=== PATIENT | male | born 1930 | race American Indian/Alaskan Native ===

== ENCOUNTER 2018-12-08 22:45 | Inpatient (IN) | payer MEDICARE ==
[2018-12-08] MEDS ORDERED: CARDIZEM IV ONE (23:16)
[2018-12-08] MEDS ORDERED: NACL 0.9% 1000 ML 1,000 ML IV ONE (23:16)
--- NOTE | 2018-12-08 23:19 | Emergency Department Report ---
ED General Adult HPI - General Chief complaint: GI Bleed Stated complaint: GI BLEED Time Seen by Provider: 12/08/18 23:14 Source: patient, EMS Mode of arrival: Stretcher Limitations: Other - History of Present Illness Initial comments: 88-year-old male who has a prior history of prostate cancer and mild dementia presents with one-day onset according to the family of blood in the stool. Family states that she noted blood in the patient's diaper when he changed and then he had a bowel movement and noted blood in the toilet. Patient denies any hematemesis. Patient denies taking any ibuprofen therapy and states he is not on any anticoagulation therapy. Patient denies any abdominal pain, chest pain, or shortness of breath. Patient states that he has had no prior episodes of blood in the stool. Patient denies any trauma to his rectal region. Patient denies any melena and states that he has had no colonoscopies in the past. Severity scale (0 -10): 0 - Related Data Allergies Allergy/AdvReac Type Severity Reaction Status Date / Time No Known Allergies Allergy Unverified 12/08/18 22:58 ED Review of Systems ROS: Stated complaint: GI BLEED Other details as noted in HPI Constitutional: weakness. denies: chills, fever Eyes: denies: eye pain, eye discharge, vision change ENT: denies: ear pain, throat pain Respiratory: denies: cough, shortness of breath, wheezing Cardiovascular: denies: chest pain, palpitations Endocrine: no symptoms reported Gastrointestinal: hematochezia. denies: abdominal pain, nausea, diarrhea Genitourinary: denies: urgency, dysuria Musculoskeletal: denies: back pain, joint swelling, arthralgia Skin: denies: rash, lesions Neurological: denies: headache, weakness, paresthesias Psychiatric: denies: anxiety, depression Hematological/Lymphatic: denies: easy bleeding, easy bruising ED Past Medical Hx - Past Medical History Hx Hypertension: Yes Hx of Cancer: Yes (prostate ca) Hx Dementia: Yes Additional medical history: dementia - Surgical History Past Surgical History?: No - Social History Smoking Status: Never Smoker Substance Use Type: None ED Physical Exam - General Limitations: Other General appearance: alert, in no apparent distress - Head Head exam: Present: atraumatic, normocephalic - Eye Eye exam: Present: normal appearance Pupils: Present: other (conjunctival pallor noted) - ENT ENT exam: Present: mucous membranes dry - Neck Neck exam: Present: normal inspection - Respiratory Respiratory exam: Present: normal lung sounds bilaterally. Absent: respiratory distress - Cardiovascular Cardiovascular Exam: Present: tachycardia, irregular rhythm. Absent: systolic murmur, diastolic murmur, rubs, gallop - GI/Abdominal GI/Abdominal exam: Present: soft, normal bowel sounds. Absent: distended, tenderness - Rectal Rectal exam: Present: heme (+) stool, bloody stool. Absent: tenderness - Extremities Exam Extremities exam: Present: normal inspection - Back Exam Back exam: Present: normal inspection - Neurological Exam Neurological exam: Present: alert, oriented X3, CN II-XII intact - Psychiatric Psychiatric exam: Present: normal affect, normal mood - Skin Skin exam: Present: warm, dry, intact, normal color. Absent: rash ED Course Vital Signs 12/08/18 12/08/18 12/08/18 22:58 23:19 23:30 Temperature 97.4 F L Pulse Rate 136 H 130 H Respiratory 19 16 Rate Blood Pressure 131/70 114/84 Blood Pressure [Left] O2 Sat by Pulse 100 100 Oximetry 12/08/18 23:57 Temperature Pulse Rate 109 H Respiratory 24 Rate Blood Pressure Blood Pressure 101/77 [Left] O2 Sat by Pulse 100 Oximetry ED Medical Decision Making - Lab Data Result diagrams: 12/08/18 23:18 12/08/18 23:27 - Medical Decision Making Patient given IV fluids as well as Protonix daily while here in emergency department. Patient also received diltiazem as he was noted be in A. fib with RVR. Patient typed and screened as well. GI consulted. - Differential Diagnosis Gi bleed; Dehydration; Anemia; Electrolyte abnormality Critical Care Time: Yes Critical care time in (mins) excluding proc time.: 40 Critical care attestation.: If time is entered above; I have spent that time in minutes in the direct care of this critically ill patient, excluding procedure time. Critical Care time includes time spent with direct bedside care, physician consultation, and physician consultation. ED Disposition Clinical Impression: GI bleed, Atrial fibrillation with RVR, Acute renal failure, Elevation of cardiac enzymes Disposition: - TO HOME OR SELFCARE Is pt being admited?: Yes Does the pt Need Aspirin: No (Patient has) Condition: Fair Referrals: LADY JARVIS MD [Primary Care Provider] - 3-5 Days Forms: Accompanied Note Time of Disposition: 00:31 Print Language: CZECH
[2018-12-08 23:46] LABS: Basophils # (Auto) 0.1 K/mm3 (0.0-0.1); Basophils % (Auto) 1.1 % (0.0-1.8); Eosinophils # (Auto) 0.1 K/mm3 (0.0-0.4); Eosinophils % (Auto) 1.2 % (0.0-4.3); Hematocrit 39.3 % (35.5-45.6); Hemoglobin 12.6 gm/dl (11.8-15.2); Lymphocytes # (Auto) 1.4 K/mm3 (1.2-5.4); Lymphocytes % (Auto) 26.7 % (13.4-35.0); Mean Corpuscular HGB Conc 32 % (32-34); Mean Corpuscular Volume 90 fl (84-94); Monocytes # (Auto) 0.4 K/mm3 (0.0-0.8); Monocytes % (Auto) 6.9 % (0.0-7.3); Platelet Count 165 K/mm3 (140-440); Red Blood Count 4.36 M/mm3 (3.65-5.03); Red Cell Distribution Width 17.2 % (13.2-15.2)
[2018-12-09] LABS: INR 1.14 (0.87-1.13)
[2018-12-09 00:01] LABS: Partial Thromboplastin Time 34.1 Sec. (24.2-36.6)
[2018-12-09 00:06] LABS: Calcium 9.1 mg/dL (8.4-10.2)
[2018-12-09 00:20] LABS: Chol/HDL Ratio 4.5 %
--- NOTE | 2018-12-09 01:11 | XRay Report ---
PROCEDURE: XR CHEST 1V AP TECHNIQUE: Chest radiograph single view. HISTORY: Gi bleed COMPARISONS: None . FINDINGS: Heart: Normal. Mediastinum/Vessels: Normal. Lungs/Pleural space: Normal. Bony thorax: No acute osseous abnormality. Life support devices: None. IMPRESSION: No acute cardiopulmonary abnormality. This document is electronically signed by Heron Hancock MD., December 09 2018 01:09:47 AM ET
[2018-12-09] MEDS ORDERED: TYLENOL PO PRN (01:38)
[2018-12-09] MEDS ORDERED: ZOFRAN IV PRN (01:38)
[2018-12-09] MEDS ORDERED: SODIUM CHLORIDE FLUSH SYRINGE 10 ML IV PRN (01:38)
--- NOTE | 2018-12-09 01:41 | History and Physical Report ---
History of Present Illness Date of examination: 12/09/18 History of present illness: 88-year-old male with a history of hypertension, dementia, prostate cancer was brought to the emergency room daughter because he had blood per rectum today. The patient has been sleeping a lot, he is from out of town. In the emergency room he was found to be in A. fib with RVR. Her review of systems unobtainable. Patient is not taking any medicine PAST MEDICAL HISTORY:hypertension, dementia, prostate cancer PAST SURGICAL HISTORY: Prostatectomy SOCIAL HISTORY: Denies alcohol, drugs, tobacco FAMILY HISTORY: Hypertension Medications and Allergies Allergies Allergy/AdvReac Type Severity Reaction Status Date / Time No Known Allergies Allergy Unverified 12/08/18 22:58 Home Medications Medication Instructions Recorded Confirmed Last Taken Type No Known Home Medications [No 12/09/18 12/09/18 Unknown History Reported Home Medications] Active Meds: Active Medications Acetaminophen (Tylenol) 650 mg PO Q4H PRN PRN Reason: Pain MILD(1-3)/Fever >100.5/LUCIO Diltiazem HCl 100 mg/ Dextrose 100 mls @ 2.5 mls/hr IV DIRECT KORY; Protocol Sodium Chloride (Nacl 0.9% 1000 Ml) 1,000 mls @ 75 mls/hr IV DIRECT KORY Ondansetron HCl (Zofran) 4 mg IV Q8H PRN PRN Reason: Nausea And Vomiting Sodium Chloride (Sodium Chloride Flush Syringe 10 Ml) 10 ml IV BID KORY Sodium Chloride (Sodium Chloride Flush Syringe 10 Ml) 10 ml IV PRN PRN PRN Reason: LINE FLUSH Exam - Physical Exam Narrative exam: General Apperance: The patient lying in bed, breathing comfortable HEENT: Normocephalic, atraumatic. Pupils equally round and reactive to light, EOMI, no sclericterus or JVD or thyromegaly or nodule. , no carotid bruit, mucous membranes moist, no exudate or erythema Heart: S1-S2, regular is rhythm Lungs: Clear to auscultation bilaterally, breathing comfortable Abdomen: Positive bowel sounds, soft, nontender, nondistended, no organomegaly Extremities: No edema cyanosis clubbing Skin: no rash, nodule, warm and dry Neuro: cranial nerves 2-12 intact, speech is fluent, motor/sensory intact - Constitutional Vitals: Temp Pulse Resp BP Pulse Ox 97.4 F L 109 H 24 101/77 100 12/08/18 22:58 12/08/18 23:57 12/08/18 23:57 12/08/18 23:57 12/08/18 23:57 Results - Labs CBC & Chem 7: 12/09/18 04:14 12/09/18 04:14 Labs: Abnormal lab results 12/08/18 12/08/18 12/08/18 Range/Units 23:18 23:27 23:27 RDW 17.2 H (13.2-15.2) % PT 15.3 H (12.2-14.9) Sec. INR 1.14 H (0.87-1.13) Sodium 135 L (137-145) mmol/L BUN 28 H (9-20) mg/dL Creatinine 1.7 H (0.8-1.5) mg/dL Troponin T 0.043 H (0.00-0.029) ng/mL Cholesterol 207 H (50-199) mg/dL LDL Cholesterol Direct 144 H (50-130) mg/dL - Imaging and Cardiology EKG: image reviewed Chest x-ray: report reviewed Assessment and Plan Assessment A. fib with RVR, new onset Lower GI bleed Dementia History of prostate cancer Plan Admit to medicine Cardizem drip, check cardiac enzymes, echo Consult cardiology, GI, monitor hemoglobin Consult critical care, start fluid DVT prophylaxis
[2018-12-09] MEDS ORDERED: CARDIZEM 100 MG in D5W 80 ML IV SCH (02:00)
[2018-12-09 02:22] LABS: Creatine Kinase MB 1.6 ng/mL (0.0-4.0)
[2018-12-09] MEDS ORDERED: NACL 0.9% 1000 ML 1,000 ML ONE (04:38)
[2018-12-09 04:45] LABS: Basophils % (Auto) 1.2 % (0.0-1.8); Eosinophils % (Auto) 0.5 % (0.0-4.3); Hematocrit 35.8 % (35.5-45.6); Hemoglobin 11.8 gm/dl (11.8-15.2); Lymphocytes # (Auto) 1.3 K/mm3 (1.2-5.4); Lymphocytes % (Auto) 22.7 % (13.4-35.0); Mean Corpuscular HGB Conc 33 % (32-34); Mean Corpuscular Volume 90 fl (84-94); Monocytes % (Auto) 6.8 % (0.0-7.3); Platelet Count 158 K/mm3 (140-440); Red Cell Distribution Width 16.8 % (13.2-15.2)
[2018-12-09 04:46] LABS: Basophils # (Auto) 0.1 K/mm3 (0.0-0.1); Monocytes # (Auto) 0.4 K/mm3 (0.0-0.8)
[2018-12-09] MEDS: NACL 0.9% 1000 ML 1,000 ML IV SCH ×2 (04:57→17:09)
[2018-12-09 05:10] LABS: Calcium 8.5 mg/dL (8.4-10.2)
--- NOTE | 2018-12-09 09:24 | Event Note ---
Date: 12/09/18 Patient with afib with RVR with GI bleed. I have seen and examined him. Cardiology to evaluate. H/H is stable for now. Repeat H/H at 16:00.
[2018-12-09 10:13] LABS: Creatine Kinase MB 1.6 ng/mL (0.0-4.0)
--- NOTE | 2018-12-09 10:34 | Gastroenterology Consultation ---
History of Present Illness - Reason for Consult Consult date: 12/09/18 GI bleed Requesting physician: JAME VELA - History of Present Illness Patient is a 88 y/o male with PMH of HTN, prostate cancer and mild dementia who was admitted with new onset Afib with RVR (currently on cardizem drip in ICU) and rectal bleeding to which GI has been consulted. Cardiology consult pending. This morning patient was resting in bed w/o acute distress. Patient noted to be oriented to self only and unable to provide history. History obtained via chart review and by speaking to patient's son Jonathan via phone. No active signs of bleeding overnight or this am per nursing. No evidence of abd pain, N/V, hematemesis, or melena. Not taking any blood thinning medications at home. No hx of PUD or GI bleeding. No prior colonoscopy. No known family hx of colon cancer. Upon exam, rectal revealed maroon blood with brown stool smeared in diaper. Past History Past Medical History: other (as per HPI) Past Surgical History: Other (Prostatectomy) Social history: denies: smoking, alcohol abuse Family history: hypertension Medications and Allergies Allergies Allergy/AdvReac Type Severity Reaction Status Date / Time No Known Allergies Allergy Unverified 12/08/18 22:58 Home Medications Medication Instructions Recorded Confirmed Last Taken Type No Known Home Medications [No 12/09/18 12/09/18 Unknown History Reported Home Medications] Active Meds: Active Medications Acetaminophen (Tylenol) 650 mg PO Q4H PRN PRN Reason: Pain MILD(1-3)/Fever >100.5/LUCIO Diltiazem HCl 100 mg/ Dextrose 100 mls @ 2.5 mls/hr IV DIRECT KORY; Protocol Last Infusion: 12/09/18 07:40 Dose: 0 mg/hr, 0 mls/hr Documented by: Sodium Chloride (Nacl 0.9% 1000 Ml) 1,000 mls @ 75 mls/hr IV DIRECT KORY Last Admin: 12/09/18 04:57 Dose: 75 mls/hr Documented by: Ondansetron HCl (Zofran) 4 mg IV Q8H PRN PRN Reason: Nausea And Vomiting Sodium Chloride (Sodium Chloride Flush Syringe 10 Ml) 10 ml IV BID KORY Sodium Chloride (Sodium Chloride Flush Syringe 10 Ml) 10 ml IV PRN PRN PRN Reason: LINE FLUSH medications reviewed/updated as required Review of Systems - Review of Systems Gastrointestinal: hematochezia Exam - Constitutional Vital Signs: Temp Pulse Resp BP Pulse Ox 97.6 F 88 22 124/83 98 12/09/18 07:50 12/09/18 10:00 12/09/18 10:00 12/09/18 10:00 12/09/18 09:10 General appearance: no acute distress, other - Respiratory Respiratory: bilateral: CTA - Cardiovascular Rhythm: other (irregular) - Gastrointestinal General gastrointestinal: Present: soft, non-tender, non-distended, normal bowel sounds Rectal Exam: other (maroon blood with brown stool smeared in diaper (cable way operator present during exam-Mitzi VIERA)) - Neurologic Neurological: oriented to person, other (cooperative) - Labs CBC & Chem 7: 12/09/18 04:14 12/09/18 04:14 Lab Results: Laboratory Results - last 24 hr 12/08/18 12/08/18 12/08/18 23:18 23:25 23:27 WBC 5.2 RBC 4.36 Hgb 12.6 Hct 39.3 MCV 90 MCH 29 MCHC 32 RDW 17.2 H Plt Count 165 Lymph % (Auto) 26.7 Gem % (Auto) 6.9 Eos % (Auto) 1.2 Baso % (Auto) 1.1 Lymph # 1.4 Gem # 0.4 Eos # 0.1 Baso # 0.1 Seg Neutrophils % 64.1 Seg Neutrophils # 3.3 PT 15.3 H INR 1.14 H APTT 34.1 Sodium Potassium Chloride Carbon Dioxide Anion Gap BUN Creatinine Estimated GFR BUN/Creatinine Ratio Glucose Calcium Magnesium Total Creatine Kinase CK-MB (CK-2) CK-MB (CK-2) Rel Index Troponin T Triglycerides Cholesterol LDL Cholesterol Direct HDL Cholesterol Cholesterol/HDL Ratio Blood Type O POSITIVE Antibody Screen Negative 12/08/18 12/09/18 12/09/18 23:27 01:45 04:14 WBC 5.8 RBC 4.00 Hgb 11.8 Hct 35.8 MCV 90 MCH 29 MCHC 33 RDW 16.8 H Plt Count 158 Lymph % (Auto) 22.7 Gem % (Auto) 6.8 Eos % (Auto) 0.5 Baso % (Auto) 1.2 Lymph # 1.3 Gem # 0.4 Eos # 0.0 Baso # 0.1 Seg Neutrophils % 68.8 Seg Neutrophils # 4.0 PT INR APTT Sodium 135 L Potassium 4.6 Chloride 100.0 Carbon Dioxide 22 Anion Gap 18 BUN 28 H Creatinine 1.7 H Estimated GFR 46 BUN/Creatinine Ratio 16 Glucose 99 Calcium 9.1 Magnesium 1.70 Total Creatine Kinase 72 69 CK-MB (CK-2) 1.6 CK-MB (CK-2) Rel Index 2.3 Troponin T 0.043 H 0.047 H Triglycerides 139 Cholesterol 207 H LDL Cholesterol Direct 144 H HDL Cholesterol 46 Cholesterol/HDL Ratio 4.50 Blood Type Antibody Screen 12/09/18 12/09/18 04:14 08:27 WBC RBC Hgb Hct MCV MCH MCHC RDW Plt Count Lymph % (Auto) Gem % (Auto) Eos % (Auto) Baso % (Auto) Lymph # Gem # Eos # Baso # Seg Neutrophils % Seg Neutrophils # PT INR APTT Sodium 137 Potassium 4.7 Chloride 103.5 Carbon Dioxide 21 L Anion Gap 17 BUN 26 H Creatinine 1.4 Estimated GFR 58 BUN/Creatinine Ratio 19 Glucose 94 Calcium 8.5 Magnesium Total Creatine Kinase 58 CK-MB (CK-2) 1.6 CK-MB (CK-2) Rel Index 2.7 Troponin T 0.044 H Triglycerides Cholesterol LDL Cholesterol Direct HDL Cholesterol Cholesterol/HDL Ratio Blood Type Antibody Screen Assessment and Plan 1.GI bleed/rectal bleeding -INR 1.14 -H/H WNL (11.8/35.8) -continue to monitor H/H and transfuse as needed -no active signs of bleeding overnight or this am per nursing; upon exam, rectal revealed maroon blood with brown stool smeared in diaper -currently HD stable -etiology unclear-likely a lower source (diverticular? vs other) -discussed the option of a endoscopic evaluation with a colonoscopy with patient's son Jonathan Diaz ([phone] or [phone]) including risks vs benefits. Understanding voiced and he is agreeable with proceeding with procedure -will schedule for colonoscopy in am pending cardiology clearance -okay for clear liquids today, then NPO after MN -continue PPI and supportive care -if overt bleeding develops, recommend stat CTA vs bleeding scan -will follow 2.Afib with RVR -currently on cardizem drip -cardiology consult pending 3.dementia 4.H/o prostate cancer
[2018-12-09] MEDS ORDERED: HALDOL ONE (11:27)
--- NOTE | 2018-12-09 11:37 | Consultation ---
History of Present Illness - Reason for Consult Consult date: 12/09/18 Afib with RVR and Questionable dark stools Requesting physician: LORRAINE COLBERT - History of Present Illness 88 y/o male with prior history of prostate CA and dementia, admitted with afib with RVR and questionable GI bleed. Patient is oriented only to his name. He does not know the year, the month nor the date. Does not know who the president is. No family currently at bedside. Slight agitated but redirectable. HR is in the mid 100's to as high as 150 during my interview and in afib. Remainder is negative. Past History Past Medical History: other (as per HPI) Past Surgical History: Other (Prostatectomy) Social history: denies: smoking, alcohol abuse Family history: hypertension Medications and Allergies Allergies Allergy/AdvReac Type Severity Reaction Status Date / Time No Known Allergies Allergy Unverified 12/08/18 22:58 Home Medications Medication Instructions Recorded Confirmed Last Taken Type No Known Home Medications [No 12/09/18 12/09/18 Unknown History Reported Home Medications] Active Meds: Active Medications Acetaminophen (Tylenol) 650 mg PO Q4H PRN PRN Reason: Pain MILD(1-3)/Fever >100.5/LUCIO Haloperidol Lactate (Haldol) 5 mg IV Q6H PRN PRN Reason: Agitation Diltiazem HCl 100 mg/ Dextrose 100 mls @ 2.5 mls/hr IV DIRECT KORY; Protocol Last Infusion: 12/09/18 07:40 Dose: 0 mg/hr, 0 mls/hr Documented by: Sodium Chloride (Nacl 0.9% 1000 Ml) 1,000 mls @ 75 mls/hr IV DIRECT KORY Last Admin: 12/09/18 04:57 Dose: 75 mls/hr Documented by: Ondansetron HCl (Zofran) 4 mg IV Q8H PRN PRN Reason: Nausea And Vomiting Polyethylene Glycol/Electrolytes (Golytely) 4,000 ml PO ONCE ONE Stop: 12/09/18 17:01 Sodium Chloride (Sodium Chloride Flush Syringe 10 Ml) 10 ml IV BID KORY Sodium Chloride (Sodium Chloride Flush Syringe 10 Ml) 10 ml IV PRN PRN PRN Reason: LINE FLUSH Review of Systems All systems: negative Exam - Constitutional Vitals: Temp Pulse Resp BP Pulse Ox 97.6 F 88 22 124/83 98 12/09/18 07:50 12/09/18 10:00 12/09/18 10:00 12/09/18 10:00 12/09/18 09:10 General appearance: Present: no acute distress, cachectic, disheveled - EENT Eyes: Present: PERRL, EOM intact ENT: hearing intact, poor dentition - Neck Neck: Present: supple, normal ROM - Respiratory Respiratory effort: normal Respiratory: bilateral: CTA - Cardiovascular Rhythm: irregularly irregular (and tachycardic) - Extremities Extremities: no ischemia - Abdominal General gastrointestinal: Present: soft, non-tender Male genitourinary: Present: deferred - Rectal Rectal Exam: deferred Results - Labs CBC & Chem 7: 12/09/18 04:14 12/09/18 04:14 Labs: Abnormal lab results 12/08/18 12/08/18 12/08/18 Range/Units 23:18 23:27 23:27 RDW 17.2 H (13.2-15.2) % PT 15.3 H (12.2-14.9) Sec. INR 1.14 H (0.87-1.13) Sodium 135 L (137-145) mmol/L Carbon Dioxide (22-30) mmol/L BUN 28 H (9-20) mg/dL Creatinine 1.7 H (0.8-1.5) mg/dL Troponin T 0.043 H (0.00-0.029) ng/mL Cholesterol 207 H (50-199) mg/dL LDL Cholesterol Direct 144 H (50-130) mg/dL 12/09/18 12/09/18 12/09/18 Range/Units 01:45 04:14 04:14 RDW 16.8 H (13.2-15.2) % PT (12.2-14.9) Sec. INR (0.87-1.13) Sodium (137-145) mmol/L Carbon Dioxide 21 L (22-30) mmol/L BUN 26 H (9-20) mg/dL Creatinine (0.8-1.5) mg/dL Troponin T 0.047 H (0.00-0.029) ng/mL Cholesterol (50-199) mg/dL LDL Cholesterol Direct (50-130) mg/dL 12/09/18 Range/Units 08:27 RDW (13.2-15.2) % PT (12.2-14.9) Sec. INR (0.87-1.13) Sodium (137-145) mmol/L Carbon Dioxide (22-30) mmol/L BUN (9-20) mg/dL Creatinine (0.8-1.5) mg/dL Troponin T 0.044 H (0.00-0.029) ng/mL Cholesterol (50-199) mg/dL LDL Cholesterol Direct (50-130) mg/dL - Imaging and Cardiology Chest x-ray: image reviewed (normal) Assessment and Plan 88 y/o male with afib with RVR and questionable GI bleed. 1. Restart Dilt drip 2. Haldol 5 q6 PRN for agitation 3. Serial H/H's can likely do q12 4. Follow up cards recs 5. electrolytes are stable CCT 31
--- NOTE | 2018-12-09 13:12 | XRay Report ---
AP ABDOMEN: HISTORY: Dobbhoff tube placement. The distal tip of the Dobbhoff tube terminates in the fundus of the stomach. The abdominal gas pattern is unremarkable. No masses or organomegaly is identified and there is no gross evidence of free air or fluid. No significant soft tissue calcifications are noted. IMPRESSION: Unremarkable abdomen.
--- NOTE | 2018-12-09 13:22 | Consultation ---
History of Present Illness Consult date: 12/09/18 Consult reason: atrial fibrillation History of present illness: Patient is an 88 year old male with a history of prostate cancer, Dementia who was brought to this hospital with reports of melena found to be in rapid atrial fibrillation thus this cardiac consultation. Patient is currently on intravenous Diltiazem. Initial labs shows acute renal failure. H&H remains stable. TSH is normal. There were no reports of chest pain, shortness of breath or palpitations. Medications and Allergies Allergies Allergy/AdvReac Type Severity Reaction Status Date / Time No Known Allergies Allergy Unverified 12/08/18 22:58 Home Medications Medication Instructions Recorded Confirmed Last Taken Type No Known Home Medications [No 12/09/18 12/09/18 Unknown History Reported Home Medications] Active Meds: Active Medications Acetaminophen (Tylenol) 650 mg PO Q4H PRN PRN Reason: Pain MILD(1-3)/Fever >100.5/LUCIO Haloperidol Lactate (Haldol) 5 mg IV Q6H PRN PRN Reason: Agitation Diltiazem HCl 100 mg/ Dextrose 100 mls @ 2.5 mls/hr IV DIRECT KORY; Protocol Last Infusion: 12/09/18 07:40 Dose: 0 mg/hr, 0 mls/hr Documented by: Sodium Chloride (Nacl 0.9% 1000 Ml) 1,000 mls @ 75 mls/hr IV DIRECT KORY Last Admin: 12/09/18 04:57 Dose: 75 mls/hr Documented by: Ondansetron HCl (Zofran) 4 mg IV Q8H PRN PRN Reason: Nausea And Vomiting Polyethylene Glycol/Electrolytes (Golytely) 4,000 ml PO ONCE ONE Stop: 12/09/18 17:01 Sodium Chloride (Sodium Chloride Flush Syringe 10 Ml) 10 ml IV BID KORY Sodium Chloride (Sodium Chloride Flush Syringe 10 Ml) 10 ml IV PRN PRN PRN Reason: LINE FLUSH Physical Examination Vital Signs Temp Pulse Resp BP Pulse Ox 97.4 F L 136 H 19 131/70 100 12/08/18 22:58 12/08/18 22:58 12/08/18 22:58 12/08/18 22:58 12/08/18 22:58 General appearance: no acute distress HEENT: Positive: PERRL Cardiac: Positive: irregularly irregular Results 12/09/18 04:14 12/09/18 04:14 Cardiac Enzymes 12/09/18 12/09/18 Range/Units 01:45 08:27 CK-MB (CK-2) 1.6 1.6 (0.0-4.0) ng/mL Coagulation 12/08/18 Range/Units 23:27 PT 15.3 H (12.2-14.9) Sec. INR 1.14 H (0.87-1.13) APTT 34.1 (24.2-36.6) Sec. Lipids 12/08/18 Range/Units 23:27 Triglycerides 139 (2-149) mg/dL Cholesterol 207 H (50-199) mg/dL HDL Cholesterol 46 (40-59) mg/dL Cholesterol/HDL Ratio 4.50 % CBC 12/08/18 12/09/18 Range/Units 23:18 04:14 WBC 5.2 5.8 (4.5-11.0) K/mm3 RBC 4.36 4.00 (3.65-5.03) M/mm3 Hgb 12.6 11.8 (11.8-15.2) gm/dl Hct 39.3 35.8 (35.5-45.6) % Plt Count 165 158 (140-440) K/mm3 Lymph # 1.4 1.3 (1.2-5.4) K/mm3 [place] # 0.4 0.4 (0.0-0.8) K/mm3 Eos # 0.1 0.0 (0.0-0.4) K/mm3 Baso # 0.1 0.1 (0.0-0.1) K/mm3 Comprehensive Metabolic Panel 12/08/18 12/09/18 Range/Units 23:27 04:14 Sodium 135 L 137 (137-145) mmol/L Potassium 4.6 4.7 (3.6-5.0) mmol/L Chloride 100.0 103.5 (98-107) mmol/L Carbon Dioxide 22 21 L (22-30) mmol/L BUN 28 H 26 H (9-20) mg/dL Creatinine 1.7 H 1.4 (0.8-1.5) mg/dL Glucose 99 94 (75-100) mg/dL Calcium 9.1 8.5 (8.4-10.2) mg/dL Assessment and Plan GI bleed Atrial fibrillation on IV Diltiazem Acute renal failure Hx of Prostate Ca Dementia
[2018-12-09] MEDS: LOPRESSOR IV PRN ×2 (14:59→22:11)
[2018-12-09 16:08] LABS: Hematocrit 37.6 % (35.5-45.6); Hemoglobin 12.1 gm/dl (11.8-15.2)
[2018-12-09] MEDS ORDERED: GOLYTELY PO ONE (17:00)
[2018-12-09] MEDS: LANOXIN IV SCH (17:00)
[2018-12-09] MEDS: CARDIZEM PO SCH (17:01)
[2018-12-09] MEDS: HALDOL IV PRN ×2 (17:01→22:18)
--- NOTE | 2018-12-09 17:21 | XRay Report ---
PROCEDURE: XR ABDOMEN 1V AP TECHNIQUE: Supine views of the abdomen HISTORY: Dobbhoff replacement COMPARISONS: None . FINDINGS: Dobbhoff tube terminates in the proximal stomach. The bowel gas pattern is nonspecific. No free air is identified. Soft tissues have no evidence for ma ss shadows or calcifications. The bony structures are intact. IMPRESSION: Dobbhoff tube terminates in the proximal stomach This document is electronically signed by Terri Chamorro MD., December 09 2018 05:19:55 PM ET
--- NOTE | 2018-12-09 19:36 | XRay Report ---
PROCEDURE: XR ABDOMEN 1V AP TECHNIQUE: Single AP view of the abdomen HISTORY: dobhoff placement/new reinsertion COMPARISONS: 12/09/2018 FINDINGS: Enteric tube tip is in the gastric fundus. If this is to be used for feeding, it should be advanced a pproximately 24 cm into the distal stomach/proximal duodenum. Gas-filled small and large bowel loops are noted in the upper abdomen. Degenerative changes of the spine are noted. IMPRESSION: Enteric tube tip is in the gastric fundus. If this is to be used for feeding, it should be advanced a pproximately 24 cm into the distal stomach/proximal duodenum. . This document is electronically signed by Bella Mac MD., December 09 2018 07:34:39 PM ET
[2018-12-10] MEDS: LANOXIN IV SCH (00:01)
[2018-12-10] MEDS: CARDIZEM PO SCH ×4 (00:04→23:32)
--- NOTE | 2018-12-10 00:11 | XRay Report ---
PROCEDURE: PORTABLE ABDOMEN TECHNIQUE: AP supine portable radiograph of the abdomen was obtained at 12/10/2018 3:38 GINSENG FARMER. HISTORY: NG tube placement COMPARISONS: None . FINDINGS: Bowel gas pattern: Nonobstructive . Masses or calcifications: None . Bony structures: Normal . Other: NG tube is in the stomach. . IMPRESSION: No acute abnormality. The NG tube is in the stomach. This document is electronically signed by Heron Hancock MD., December 10 2018 12:09:28 AM ET
[2018-12-10 06:14] LABS: Hematocrit 40.6 % (35.5-45.6); Hemoglobin 12.6 gm/dl (11.8-15.2)
[2018-12-10] MEDS: SODIUM CHLORIDE FLUSH SYRINGE 10 ML IV SCH ×4 (06:39→22:10)
--- NOTE | 2018-12-10 10:10 | Progress Note ---
Assessment and Plan Assessment and plan: Rapid atrial fibrillation Now on Cardizem , Digoxin Acute GI bleed For colonoscopy today H/H stable Encephalopathy/lethargic Will check CT Head Hypertension. Monitor BP Dementia Continue supportive care Prostate cancer Full code. Hospitalist Physical - Physical exam Narrative exam: Gen: Not in acute distress, lying in bed HEENT: Normocephalic, atraumatic Neck: supple, no JVD Heart: S1 and S2 irreg, irregno murmurs, rubs or gallop Lungs: Clear, no crackles Abd: soft, non tender, non distended, normal BS Ext: No edema, no clubbing, no cyanosis, Neuro: Lethargic, moves all ext - Constitutional Vitals: Temp Pulse Resp BP Pulse Ox 98.6 F 116 H 37 H 156/104 94 12/10/18 04:00 12/10/18 06:36 12/09/18 18:40 12/10/18 06:36 12/10/18 08:58 General appearance: Present: no acute distress Results - Labs CBC & Chem 7: 12/11/18 04:56 12/11/18 04:56 Labs: Laboratory Last Values WBC 5.8 K/mm3 (4.5-11.0) 12/09/18 04:14 RBC 4.00 M/mm3 (3.65-5.03) 12/09/18 04:14 Hgb 12.6 gm/dl (11.8-15.2) 12/10/18 05:48 Hct 40.6 % (35.5-45.6) 12/10/18 05:48 MCV 90 fl (84-94) 12/09/18 04:14 MCH 29 pg (28-32) 12/09/18 04:14 MCHC 33 % (32-34) 12/09/18 04:14 RDW 16.8 % (13.2-15.2) H 12/09/18 04:14 Plt Count 158 K/mm3 (140-440) 12/09/18 04:14 Lymph % (Auto) 22.7 % (13.4-35.0) 12/09/18 04:14 [place] % (Auto) 6.8 % (0.0-7.3) 12/09/18 04:14 Eos % (Auto) 0.5 % (0.0-4.3) 12/09/18 04:14 Baso % (Auto) 1.2 % (0.0-1.8) 12/09/18 04:14 Lymph # 1.3 K/mm3 (1.2-5.4) 12/09/18 04:14 [place] # 0.4 K/mm3 (0.0-0.8) 12/09/18 04:14 Eos # 0.0 K/mm3 (0.0-0.4) 12/09/18 04:14 Baso # 0.1 K/mm3 (0.0-0.1) 12/09/18 04:14 Seg Neutrophils % 68.8 % (40.0-70.0) 12/09/18 04:14 Seg Neutrophils # 4.0 K/mm3 (1.8-7.7) 12/09/18 04:14 PT 15.3 Sec. (12.2-14.9) H 12/08/18 23:27 INR 1.14 (0.87-1.13) H 12/08/18 23:27 APTT 34.1 Sec. (24.2-36.6) 12/08/18 23:27 Sodium 137 mmol/L (137-145) 12/09/18 04:14 Potassium 4.7 mmol/L (3.6-5.0) 12/09/18 04:14 Chloride 103.5 mmol/L (98-107) 12/09/18 04:14 Carbon Dioxide 21 mmol/L (22-30) L 12/09/18 04:14 Anion Gap 17 mmol/L 12/09/18 04:14 BUN 26 mg/dL (9-20) H 12/09/18 04:14 Creatinine 1.4 mg/dL (0.8-1.5) 12/09/18 04:14 Estimated GFR 58 ml/min 12/09/18 04:14 BUN/Creatinine Ratio 19 % 12/09/18 04:14 Glucose 94 mg/dL (75-100) 12/09/18 04:14 Calcium 8.5 mg/dL (8.4-10.2) 12/09/18 04:14 Magnesium 1.70 mg/dL (1.7-2.3) 12/08/18 23:27 Total Creatine Kinase 58 units/L (55-170) 12/09/18 08:27 CK-MB (CK-2) 1.6 ng/mL (0.0-4.0) 12/09/18 08:27 CK-MB (CK-2) Rel Index 2.7 (0-4) 12/09/18 08:27 Troponin T 0.044 ng/mL (0.00-0.029) H 12/09/18 08:27 Triglycerides 139 mg/dL (2-149) 12/08/18 23:27 Cholesterol 207 mg/dL (50-199) H 12/08/18 23:27 LDL Cholesterol Direct 144 mg/dL (50-130) H 12/08/18 23:27 HDL Cholesterol 46 mg/dL (40-59) 12/08/18 23: Cholesterol/HDL Ratio 4.50 % 12/08/18 23: TSH 4.060 mlU/mL (0.270-4.200) 12/09/18 10:37 Free T4 1.13 ng/dL (0.76-1.46) 12/09/18 10:37 Blood Type O POSITIVE 12/08/18 23:25 Antibody Screen Negative 12/08/18 23:25 Active Medications - Current Medications Current Medications: Generic Name Dose Route Start Last Admin Trade Name Freq PRN Reason Stop Dose Admin Acetaminophen 650 mg 12/09/18 01:38 Tylenol PO Q4H PRN Pain MILD(1-3)/Fever >100.5/LUCIO Digoxin 0.125 mg 12/10/18 17:00 Lanoxin PO DAILY@1700 KORY Diltiazem HCl 30 mg 12/09/18 18:00 12/10/18 06:36 Cardizem PO 30 mg Q6HR KORY Administration Haloperidol Lactate 5 mg 12/09/18 11:27 12/09/18 22:18 Haldol IV 5 mg Q6H PRN Administration Agitation Sodium Chloride 1,000 mls @ 75 mls/hr 12/09/18 02:00 12/09/18 17:09 Nacl 0.9% 1000 Ml IV 75 mls/hr DIRECT KORY Administration Metoprolol Tartrate 5 mg 12/09/18 13:24 12/09/18 22:11 Lopressor IV 5 mg Q6H PRN Administration HR greater than 130 Ondansetron HCl 4 mg 12/09/18 01:38 Zofran IV Q8H PRN Nausea And Vomiting Sodium Chloride 10 ml 12/09/18 10:00 12/10/18 06:39 Sodium Chloride Flush Syringe 10 Ml IV 10 ml BID KORY Administration Sodium Chloride 10 ml 12/09/18 01:38 Sodium Chloride Flush Syringe 10 Ml IV PRN PRN LINE FLUSH
--- NOTE | 2018-12-10 10:19 | Gastroenterology Progress Note ---
Assessment and Plan 1.GI bleed/rectal bleeding -INR 1.14 -H/H 12.6/40.6 -continue to monitor H/H and transfuse as needed -large amount of liquids bloody stool this am in diaper and on bed upon exam. No evidence of abd pain or N/V. -currently HD stable -etiology unclear-likely a lower source (diverticular? vs other) -colonoscopy +/-EGD today (POA-patient's son Jonathan DiazWjeedw-[phone] or [phone]) -Keep NPO -continue PPI and supportive care -will follow 2.Afib with RVR -currently on cardizem drip -cardiology following-spoke with cardiology this am with clearance given for endoscopic evaluation 3.dementia 4.H/o prostate cancer Subjective Date of service: 12/10/18 Principal diagnosis: GI bleed Interval history: Patient resting in bed this am w/o acute distress but noted to be somnolent (given haldol overnight) and in now in restraints. Upon exam, large amount of bloody stool noted in diaper and on bed. Spoke with nurse to make aware. Objective - Constitutional Vitals: Temp Pulse Resp BP Pulse Ox 98.6 F 116 H 37 H 156/104 94 12/10/18 04:00 12/10/18 06:36 12/09/18 18:40 12/10/18 06:36 12/10/18 08:58 General appearance: no acute distress, other (somnolent) - Respiratory Respiratory: bilateral: CTA (anterior) - Cardiovascular Rhythm: other (irregular) - Gastrointestinal General gastrointestinal: Present: soft, non-distended, normal bowel sounds Rectal Exam: other (+bloody liquids stool in diaper and on bed upon exam) - Labs CBC & Chem 7: 12/10/18 05:48 12/09/18 04:14 Labs: Laboratory Results - last 24 hr 12/09/18 12/09/18 12/09/18 08:27 10:37 10:37 Hgb Hct Total Creatine Kinase 58 CK-MB (CK-2) 1.6 CK-MB (CK-2) Rel Index 2.7 Troponin T 0.044 H TSH 4.060 Free T4 1.13 12/09/18 12/10/18 15:33 05:48 Hgb 12.1 12.6 Hct 37.6 40.6 Total Creatine Kinase CK-MB (CK-2) CK-MB (CK-2) Rel Index Troponin T TSH Free T4
--- NOTE | 2018-12-10 11:34 | Progress Note ---
Assessment and Plan GI bleed Atrial fibrillation, uncertain chronicity on IV Diltiazem Acute renal failure Hx of Prostate Ca Dementia Echocardiogram reports evidence of moderate TR with a normal left ventricular systolic function, EF 55%. Recommendations: Atrial fibrillation rate control with digitalis and diltiazem. Patient is considered moderate risk for GI endoscopy. Ok to proceed. Subjective Date of service: 12/10/18 Principal diagnosis: GI bleed Interval history: Patient is in restraints. Afib, rate in the low 100s on telemetry. Objective Vital Signs Temp Pulse Pulse Resp BP Pulse Ox 12/10/18 08:58 94 12/10/18 06:36 116 H 156/104 12/10/18 04:00 98.6 F 12/10/18 00:04 125 H 116/74 12/10/18 00:01 113 H 116/74 12/10/18 00:00 98.8 F 12/09/18 22:11 140 H 137/76 12/09/18 20:00 98.7 F 12/09/18 18:50 116/74 99 12/09/18 18:40 137 H 37 H 116/74 97 12/09/18 18:30 129 H 16 116/74 96 12/09/18 18:20 140 H 14 116/74 99 12/09/18 18:10 129 H 19 116/74 99 12/09/18 18:00 134 H 12 128/77 98 12/09/18 17:50 136 H 14 128/77 98 12/09/18 17:40 126 H 10 L 128/77 12/09/18 17:30 128 H 17 128/77 99 12/09/18 17:20 126 H 25 H 128/77 98 12/09/18 17:10 120 H 16 128/77 98 12/09/18 17:01 120 H 124/74 12/09/18 17:00 141 H 13 122/74 97 12/09/18 16:50 105 H 9 L 122/74 95 12/09/18 16:44 118 H 15 122/74 96 12/09/18 16:40 140 H 17 122/74 98 12/09/18 16:30 115 H 18 101/64 98 12/09/18 16:20 112 H 16 101/64 98 12/09/18 16:10 126 H 13 101/64 100 12/09/18 16:00 97.4 F L 114 H 9 L 101/64 97 12/09/18 15:50 105 H 16 101/64 98 12/09/18 15:40 121 H 15 101/64 97 12/09/18 15:30 103 H 10 L 101/64 98 12/09/18 15:20 107 H 18 101/64 96 12/09/18 15:10 93 H 18 101/64 100 12/09/18 15:00 118 H 18 128/59 97 12/09/18 14:59 138 H 101/64 12/09/18 14:50 157 H 23 128/59 96 12/09/18 14:40 149 H 25 H 128/59 85 12/09/18 14:30 124 H 13 128/59 99 12/09/18 14:20 146 H 13 128/59 100 12/09/18 14:10 122 H 16 128/59 96 12/09/18 14:00 153 H 19 113/71 12/09/18 13:50 161 H 14 113/71 100 12/09/18 13:40 153 H 21 113/71 99 12/09/18 13:30 130 H 15 113/71 97 12/09/18 13:20 134 H 15 113/71 94 12/09/18 13:10 169 H 16 113/71 97 12/09/18 13:00 152 H 13 111/75 99 12/09/18 12:50 125 H 11 L 111/75 97 12/09/18 12:40 127 H 12 111/75 99 12/09/18 12:30 142 H 16 113/71 100 12/09/18 12:20 141 H 20 113/71 100 12/09/18 12:10 139 H 14 113/71 99 12/09/18 12:00 97.2 F L 135 H 18 111/75 98 12/09/18 11:50 145 H 17 128/92 99 12/09/18 11:40 146 H 19 128/92 100 - Physical Examination General: No Apparent Distress Cardiac: Positive: irregularly irregular - Labs and Meds CBC 12/09/18 12/10/18 Range/Units 15:33 05:48 Hgb 12.1 12.6 (11.8-15.2) gm/dl Hct 37.6 40.6 (35.5-45.6) %
--- NOTE | 2018-12-10 12:50 | Progress Note ---
Assessment and Plan 88 y/o male with afib with RVR and questionable GI bleed. 1. HR is stable 2. GI to eval for possible source of bleeding 3. No pulmonary issues 4. Will sign off for right now. Call if questions. Subjective Date of service: 12/10/18 Principal diagnosis: GI bleed Interval history: No acute events. Rate is now controlled and off cardizem drip. Weaned to room air. Objective - Constitutional Vitals: Vital Signs - 12hr 12/10/18 12/10/18 12/10/18 04:00 06:36 08:58 Temperature 98.6 F Pulse Rate 116 H Blood Pressure 156/104 O2 Sat by Pulse 94 Oximetry 12/10/18 11:46 Temperature 97.9 F Pulse Rate Blood Pressure O2 Sat by Pulse Oximetry - Labs CBC & Chem 7: 12/10/18 05:48 12/09/18 04:14 Medications & Allergies - Medications Allergies/Adverse Reactions: Allergies No Known Allergies Allergy (Unverified 12/08/18 22:58) Home Medications: Home Medications Medication Instructions Recorded Confirmed Last Taken Type No Known Home Medications [No 12/09/18 12/09/18 Unknown History Reported Home Medications] Active Medications: Generic Name Dose Route Start Last Admin Trade Name Freq PRN Reason Stop Dose Admin Acetaminophen 650 mg 12/09/18 01:38 Tylenol PO Q4H PRN Pain MILD(1-3)/Fever >100.5/LUCIO Digoxin 0.125 mg 12/10/18 17:00 Lanoxin PO DAILY@1700 KORY Diltiazem HCl 30 mg 12/09/18 18:00 12/10/18 12:30 Cardizem PO 30 mg Q6HR KORY Administration Haloperidol Lactate 5 mg 12/09/18 11:27 12/09/18 22:18 Haldol IV 5 mg Q6H PRN Administration Agitation Sodium Chloride 1,000 mls @ 75 mls/hr 12/09/18 02:00 12/09/18 17:09 Nacl 0.9% 1000 Ml IV 75 mls/hr DIRECT KORY Administration Metoprolol Tartrate 5 mg 12/09/18 13:24 12/09/18 22:11 Lopressor IV 5 mg Q6H PRN Administration HR greater than 130 Ondansetron HCl 4 mg 12/09/18 01:38 Zofran IV Q8H PRN Nausea And Vomiting Sodium Chloride 10 ml 12/09/18 10:00 12/10/18 12:30 Sodium Chloride Flush Syringe 10 Ml IV 10 ml BID KORY Administration Sodium Chloride 10 ml 12/09/18 01:38 Sodium Chloride Flush Syringe 10 Ml IV PRN PRN LINE FLUSH
--- NOTE | 2018-12-10 13:50 | Cat Scan Report ---
PROCEDURE: CT HEAD/BRAIN WO CON TECHNIQUE: CT examination of the head without IV contrast HISTORY: Altered mental status COMPARISONS: None FINDINGS: Nonspecific superior right parietal skull lucency is smoothly marginated and appears chronic. This ma y be a hemangioma. Cerebrovascular atherosclerotic calcification is present in the skull base arteries. No acute air-fluid level visualized in the included air-filled sinuses. Bone windows demonstrate no acute fracture. There is ventricular and sulcal prominence compatible with global cerebrocortical atrophy. Low attenuation regions in the cerebral white matter, while nonspecific, are present and usually attr ibuted to chronic ischemic gliosis. It can occur secondary to the normal aging process, hypertension, or arterial sclerotic vascular dise ase. The differential includes demyelination in the appropriate clinical setting. The brain contains no mass, mass effect, hemorrhage, or acute infarct. There is no extra-axial intracranial bleed or brain bleed. There is no midline shift. IMPRESSION: No acute CVA, intracranial bleed, or brain mass This document is electronically signed by Moustapha Dash MD., December 10 2018 01:48:36 PM ET
[2018-12-10] MEDS ORDERED: WATER FOR IRRIG STERILE IR ONE (14:59)
[2018-12-10] MEDS: NACL 0.9% 1000 ML 1,000 ML IV SCH (15:35)
[2018-12-10] MEDS ORDERED: DIPRIVAN 10 MG/ML IV ONE (16:03)
--- NOTE | 2018-12-10 16:05 | Anesthesia Consultation ---
Anesthesia Consult and Med Hx Date of service: 12/10/18 - Airway Anesthetic Teeth Evaluation: Poor ROM Head & Neck: Adequate Mental/Hyoid Distance: Adequate Mallampati Class: Class II Intubation Access Assessment: Probably Good - Pre-Operative Health Status ASA Pre-Surgery Classification: ASA4 Proposed Anesthetic Plan: MAC - Cardiovascular System Hx Hypertension: Yes - Central Nervous System Hx Psychiatric Problems: Yes (dementia) - Gastrointestinal Hx Ulcer: Yes (GI bleed) - Other Systems Hx Cancer: Yes (prostate CA)
--- NOTE | 2018-12-10 16:06 | Anesthesia Day of Surgery ---
Anesthesia Day of Surgery - Day of Surgery Patient Examined: Yes Patient H&P Reviewed: Yes Patient is NPO: Yes Cardiac Clearance: Yes
--- NOTE | 2018-12-10 16:28 | Post Operative Note ---
Pre-op diagnosis: GI bleed Post-op diagnosis: same Findings: EGD: hiatal hernia - healing m-w tear x 2 g-e junction w/o stigmata - gastritis - 8 mm ulcer bulb and healing ulcer w/ mild deformity bulb Colon: diverticulosis throughout mainly sigmoid - internal hemorrhoids - suspect diverticular bleed Procedure: EGD/colonoscopy Anesthesia: MAC Surgeon: ADENIKE HERRERA Estimated blood loss: none Pathology: list Specimen disposition: to lab Condition: stable Disposition: floor
--- NOTE | 2018-12-10 16:59 | Operative Report ---
PROCEDURE: Colonoscopy. INDICATION: 1. Anemia. 2. GI bleed. MEDICATIONS: Propofol per DRIVER GUARD. COMPLICATIONS: None. DESCRIPTION OF PROCEDURE: The patient was brought today in the center. The patient had the procedure discussed with the son at length. All risks, complications, and benefits were discussed after which consent was gotten for the procedure to be performed. The patient was placed in left lateral decubitus position. Rectal exam performed prior to insertion of the scope. After adequate sedation medication as above, scope was inserted into the rectum and brought to the level of the cecum. Ileocecal valve, appendiceal orifice, cecal strap were visualized. Colonoscope was then removed and mucosa of colon visualized. Prep quality was poor. Vital signs remained stable throughout the procedure. FINDINGS: There were no obvious mass lesions or polyps noted during this procedure. There were multiple extensive diverticulosis throughout the colon, especially in the sigmoid. No stigmata of bleeding or signs of previous bleeding were noted. Retroflexion view performed in the rectum showed large internal hemorrhoids. The patient tolerated the procedure well. No complications during the procedure. IMPRESSION: 1. Large internal hemorrhoids. 2. Diverticulosis throughout, especially in the sigmoid. 3. 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 4. Otherwise, benign colonoscopy. 5. I suspect diverticular bleed. RECOMMENDATIONS: 1. Follow hematocrit and transfuse as needed. 2. Advance diet. 3. Further recommendation based on progress. 4. If stable in the morning, okay to discharge. JOB# [id number] CAB/NTS
--- NOTE | 2018-12-11 02:05 | Operative Report ---
PROCEDURE: EGD. INDICATION: 1. Anemia. 2. GI bleed. MEDICATIONS: Propofol per HEART DOCTOR. COMPLICATIONS: None. DESCRIPTION OF PROCEDURE: The patient brought to procedure suite. The patient had the procedure discussed with his son at length. All risks, complications, and benefits were discussed after which the patient's son gave permission for the procedure to be performed. The patient was placed in left lateral decubitus position. Mouth block was placed in the patient's oral cavity. After adequate sedation medication as above, endoscope was introduced into the mouth and brought to the level of the second portion of duodenum. Retroflexion view performed. The patient's vital signs remained stable throughout the procedure. FINDINGS: 1. There was noted to be a medium hiatal hernia at GE junction 38 cm from the gums. 2. Ebonie-Márquez tear, which are white base in approximately 1.5-2 cm in length were noted at GE junction. No bleeding stigmata was noted. The esophagus otherwise appeared to be normal. Mild antral gastritis noted. Stomach otherwise appeared to be normal. There was 8-10 mm white base ulcer noted in the duodenal bulb with no bleeding stigmata. The duodenum was somewhat deformed from previous peptic ulcer disease with a healing ulcer noted in a circular rim in the deformed area. The duodenum otherwise appeared to be normal. Retroflexion view performed in the stomach showed no other pathology other than noted above. The patient tolerated the procedure well. No complications during the procedure. IMPRESSION: 1. Hiatal hernia. 2. Ebonie-Márquez tear x 2 without bleeding stigmata. 3. Gastritis. 4. Healing ulcer in the duodenal bulb and deformity from previous peptic ulcer in the duodenal bulb as noted above. 5. Otherwise, normal duodenum. RECOMMENDATIONS: 1. PPI daily. 2. Avoid NSAIDs and aspirin. 3. Follow hematocrit, transfuse as needed. 4. Colonoscopy to follow further recommendation based on colonoscopy results. JOB# [id number] CAB/NTS
[2018-12-11 05:25] LABS: Hematocrit 39.2 % (35.5-45.6); Hemoglobin 12.6 gm/dl (11.8-15.2); Mean Corpuscular HGB Conc 32 % (32-34); Mean Corpuscular Volume 90 fl (84-94); Platelet Count 155 K/mm3 (140-440); Red Blood Count 4.34 M/mm3 (3.65-5.03); Red Cell Distribution Width 16.3 % (13.2-15.2)
[2018-12-11] MEDS: CARDIZEM PO SCH ×4 (05:38→23:23)
[2018-12-11 05:44] LABS: Calcium 8.4 mg/dL (8.4-10.2)
[2018-12-11] MEDS: SODIUM CHLORIDE FLUSH SYRINGE 10 ML IV SCH ×2 (10:11→22:05)
--- NOTE | 2018-12-11 10:53 | Gastroenterology Progress Note ---
Assessment and Plan 1.GI bleed/rectal bleeding -H/H 12.6/39.2-stable -continue to monitor H/H and transfuse as needed -no active signs of bleeding -s/p EGD/colonoscopy yesterday that showed hiatal hernia, healing M-W tear x 2 GE junction w/o bleeding stigmata, gastritis, healing duodenal ulcer w/ mild deformity bulb, diverticulosis and internal hemorrhoids -etiology-suspect diverticular bleed -diet as tolerated -avoid NSAIDs -okay for anticoagulants in 3 days if recommended per cardiology for Afib- monitor and hold for signs of active bleeding -continue PPI and supportive care -patient okay to be d/c per GI standpoint with f/u in clinic -will sign off, please call if needed Subjective Date of service: 12/11/18 Principal diagnosis: GI bleed Interval history: No acute distress or active signs of bleeding. Objective - Constitutional Vitals: Temp Pulse Resp BP Pulse Ox 97.9 F 106 H 16 110/55 97 12/11/18 08:00 12/11/18 05:38 12/10/18 16:56 12/11/18 05:38 12/10/18 16:56 General appearance: no acute distress - Respiratory Respiratory: bilateral: CTA (anterior) - Cardiovascular Rhythm: other (tachycardia) - Gastrointestinal General gastrointestinal: Present: soft, non-tender, non-distended, normal bowel sounds - Labs CBC & Chem 7: 12/11/18 04:56 12/11/18 04:56 Labs: Laboratory Results - last 24 hr 12/11/18 12/11/18 04:56 04:56 WBC 5.6 RBC 4.34 Hgb 12.6 Hct 39.2 MCV 90 MCH 29 MCHC 32 RDW 16.3 H Plt Count 155 Sodium 138 Potassium 4.4 Chloride 104.3 Carbon Dioxide 20 L Anion Gap 18 BUN 27 H Creatinine 1.4 Estimated GFR 58 BUN/Creatinine Ratio 19 Glucose 106 H Calcium 8.4
--- NOTE | 2018-12-11 10:59 | Progress Note ---
Assessment and Plan Assessment and plan: Rapid atrial fibrillation Now on Cardizem , Digoxin Acute GI bleed due to diverticular bleed H/H stable Diverticulosis Internal hemorrhoids EGD shows MW tear, gastritis, Duodenal bulb ulcer PPI GI following Ebonie aranda tear Gastritis Encephalopathy/lethargic, improving CT head neg Hypertension. Monitor BP Dementia Continue supportive care Prostate cancer Full code. History Interval history: had colonoscopy yesterday Hospitalist Physical - Physical exam Narrative exam: Gen: Not in acute distress, lying in bed HEENT: Normocephalic, atraumatic Neck: supple, no JVD Heart: S1 and S2 irreg, irregno murmurs, rubs or gallop Lungs: Clear, no crackles Abd: soft, non tender, non distended, normal BS Ext: No edema, no clubbing, no cyanosis, Neuro: Lethargic, moves all ext - Constitutional Vitals: Temp Pulse Resp BP Pulse Ox 97.9 F 106 H 16 110/55 97 12/11/18 08:00 12/11/18 05:38 12/10/18 16:56 12/11/18 05:38 12/10/18 16:56 General appearance: Present: no acute distress Results - Labs CBC & Chem 7: 12/11/18 04:56 12/11/18 04:56 Labs: Laboratory Last Values WBC 5.6 K/mm3 (4.5-11.0) 12/11/18 04:56 RBC 4.34 M/mm3 (3.65-5.03) 12/11/18 04:56 Hgb 12.6 gm/dl (11.8-15.2) 12/11/18 04:56 Hct 39.2 % (35.5-45.6) 12/11/18 04:56 MCV 90 fl (84-94) 12/11/18 04:56 MCH 29 pg (28-32) 12/11/18 04:56 MCHC 32 % (32-34) 12/11/18 04:56 RDW 16.3 % (13.2-15.2) H 12/11/18 04:56 Plt Count 155 K/mm3 (140-440) 12/11/18 04:56 Lymph % (Auto) 22.7 % (13.4-35.0) 12/09/18 04:14 [place] % (Auto) 6.8 % (0.0-7.3) 12/09/18 04:14 Eos % (Auto) 0.5 % (0.0-4.3) 12/09/18 04:14 Baso % (Auto) 1.2 % (0.0-1.8) 12/09/18 04:14 Lymph # 1.3 K/mm3 (1.2-5.4) 12/09/18 04:14 [place] # 0.4 K/mm3 (0.0-0.8) 12/09/18 04:14 Eos # 0.0 K/mm3 (0.0-0.4) 12/09/18 04:14 Baso # 0.1 K/mm3 (0.0-0.1) 12/09/18 04:14 Seg Neutrophils % 68.8 % (40.0-70.0) 12/09/18 04:14 Seg Neutrophils # 4.0 K/mm3 (1.8-7.7) 12/09/18 04:14 PT 15.3 Sec. (12.2-14.9) H 12/08/18 23:27 INR 1.14 (0.87-1.13) H 12/08/18 23:27 APTT 34.1 Sec. (24.2-36.6) 12/08/18 23:27 Sodium 138 mmol/L (137-145) 12/11/18 04:56 Potassium 4.4 mmol/L (3.6-5.0) 12/11/18 04:56 Chloride 104.3 mmol/L (98-107) 12/11/18 04:56 Carbon Dioxide 20 mmol/L (22-30) L 12/11/18 04:56 Anion Gap 18 mmol/L 12/11/18 04:56 BUN 27 mg/dL (9-20) H 12/11/18 04:56 Creatinine 1.4 mg/dL (0.8-1.5) 12/11/18 04:56 Estimated GFR 58 ml/min 12/11/18 04:56 BUN/Creatinine Ratio 19 % 12/11/18 04:56 Glucose 106 mg/dL (75-100) H 12/11/18 04:56 Calcium 8.4 mg/dL (8.4-10.2) 12/11/18 04:56 Magnesium 1.70 mg/dL (1.7-2.3) 12/08/18 23:27 Total Creatine Kinase 58 units/L (55-170) 12/09/18 08:27 CK-MB (CK-2) 1.6 ng/mL (0.0-4.0) 12/09/18 08:27 CK-MB (CK-2) Rel Index 2.7 (0-4) 12/09/18 08:27 Troponin T 0.044 ng/mL (0.00-0.029) H 12/09/18 08:27 Triglycerides 139 mg/dL (2-149) 12/08/18 23:27 Cholesterol 207 mg/dL (50-199) H 12/08/18 23:27 LDL Cholesterol Direct 144 mg/dL (50-130) H 12/08/18 23:27 HDL Cholesterol 46 mg/dL (40-59) 12/08/18 23:27 Cholesterol/HDL Ratio 4.50 % 12/08/18 23:27 TSH 4.060 mlU/mL (0.270-4.200) 12/09/18 10:37 Free T4 1.13 ng/dL (0.76-1.46) 12/09/18 10:37 Blood Type O POSITIVE 12/08/18 23:25 Antibody Screen Negative 12/08/18 23:25 Active Medications - Current Medications Current Medications: Generic Name Dose Route Start Last Admin Trade Name Freq PRN Reason Stop Dose Admin Acetaminophen 650 mg 12/09/18 01:38 Tylenol PO Q4H PRN Pain MILD(1-3)/Fever >100.5/LUCIO Digoxin 0.125 mg 12/10/18 17:00 Lanoxin PO DAILY@1700 KORY Diltiazem HCl 30 mg 12/09/18 18:00 12/11/18 05:38 Cardizem PO 30 mg Q6HR KORY Administration Haloperidol Lactate 5 mg 12/09/18 11:27 12/09/18 22:18 Haldol IV 5 mg Q6H PRN Administration Agitation Sodium Chloride 1,000 mls @ 50 mls/hr 12/10/18 15:00 12/10/18 15:35 Nacl 0.9% 1000 Ml IV 50 mls/hr DIRECT KORY Administration Metoprolol Tartrate 5 mg 12/09/18 13:24 12/09/18 22:11 Lopressor IV 5 mg Q6H PRN Administration HR greater than 130 Ondansetron HCl 4 mg 12/09/18 01:38 Zofran IV Q8H PRN Nausea And Vomiting Sodium Chloride 10 ml 12/09/18 10:00 12/11/18 10:11 Sodium Chloride Flush Syringe 10 Ml IV 10 ml BID KORY Administration Sodium Chloride 10 ml 12/09/18 01:38 Sodium Chloride Flush Syringe 10 Ml IV PRN PRN LINE FLUSH
[2018-12-11] MEDS ORDERED: PROTONIX IV SCH (12:00)
[2018-12-11] MEDS ORDERED: NACL 0.9% 500 ML 500 ML IV ONE (12:15)
--- NOTE | 2018-12-11 12:28 | Progress Note ---
Assessment and Plan GI bleed EGD/colonoscopy: hiatal hernia, healing M-W tear x 2 GE junction w/o bleeding stigmata, gastritis, healing duodenal ulcer w/ mild deformity bulb, diverticulosis and internal hemorrhoids Atrial fibrillation, uncertain chronicity on diltiazem and digoxin for rate control Acute renal failure Hx of Prostate Ca Dementia Echocardiogram reports evidence of moderate TR with a normal left ventricular systolic function, EF 55%. Recommend: Optimal rate controlling agents with digitalis and diltiazem for atrial fibrillation that persists. Subjective Date of service: 12/11/18 Principal diagnosis: GI bleed Interval history: Afib, rate in the low 100s on telemetry. Objective Vital Signs Temp Pulse Resp BP Pulse Ox 12/11/18 10:00 87 12/11/18 09:00 20 98 12/11/18 08:00 97.9 F 12/11/18 05:38 106 H 110/55 12/11/18 04:00 98.6 F 12/11/18 00:00 98.4 F 12/10/18 23:32 124 H 118/67 12/10/18 22:00 135 H 12/10/18 20:00 98.1 F 12/10/18 16:56 90 16 103/61 97 12/10/18 16:41 72 13 93/57 100 12/10/18 16:26 97.2 F L 68 10 L 87/51 100 12/10/18 15:11 97.3 F L 88 19 119/80 99 12/10/18 15:06 97.3 F L 88 19 119/80 99 - Physical Examination General: No Apparent Distress HEENT: Positive: PERRL Cardiac: Positive: irregularly irregular - Labs and Meds CBC 12/11/18 Range/Units 04:56 WBC 5.6 (4.5-11.0) K/mm3 RBC 4.34 (3.65-5.03) M/mm3 Hgb 12.6 (11.8-15.2) gm/dl Hct 39.2 (35.5-45.6) % Plt Count 155 (140-440) K/mm3 Comprehensive Metabolic Panel 12/11/18 Range/Units 04:56 Sodium 138 (137-145) mmol/L Potassium 4.4 (3.6-5.0) mmol/L Chloride 104.3 (98-107) mmol/L Carbon Dioxide 20 L (22-30) mmol/L BUN 27 H (9-20) mg/dL Creatinine 1.4 (0.8-1.5) mg/dL Glucose 106 H (75-100) mg/dL Calcium 8.4 (8.4-10.2) mg/dL
[2018-12-11] MEDS: LANOXIN PO SCH ×2 (16:36→19:05)
[2018-12-11] MEDS: NACL 0.9% 1000 ML 1,000 ML IV SCH (23:23)
[2018-12-12] MEDS: HALDOL IV PRN (00:19)
[2018-12-12] MEDS: LOPRESSOR IV PRN ×2 (01:14→10:00)
[2018-12-12] MEDS: CARDIZEM PO SCH (05:06)
[2018-12-12] MEDS ORDERED: PROTONIX PO SCH (10:00)
[2018-12-12 10:02] VITALS: BP 135/85
[2018-12-12 10:20] LABS: Hematocrit 33.1 % (35.5-45.6)
--- NOTE | 2018-12-12 11:11 | Progress Note ---
Hospitalist Physical - Constitutional Vitals: Temp Pulse Resp BP Pulse Ox 98.4 F 132 H 18 135/85 100 12/12/18 04:00 12/12/18 10:00 12/12/18 05:00 12/12/18 10:00 12/12/18 05:00 General appearance: Present: no acute distress Results - Labs CBC & Chem 7: 12/12/18 07:17 12/11/18 04:56 Labs: Laboratory Last Values WBC 5.6 K/mm3 (4.5-11.0) 12/11/18 04:56 RBC 4.34 M/mm3 (3.65-5.03) 12/11/18 04:56 Hgb 11.0 gm/dl (11.8-15.2) L 12/12/18 07:17 Hct 33.1 % (35.5-45.6) L D 12/12/18 07:17 MCV 90 fl (84-94) 12/11/18 04:56 MCH 29 pg (28-32) 12/11/18 04:56 MCHC 32 % (32-34) 12/11/18 04:56 RDW 16.3 % (13.2-15.2) H 12/11/18 04:56 Plt Count 155 K/mm3 (140-440) 12/11/18 04:56 Lymph % (Auto) 22.7 % (13.4-35.0) 12/09/18 04:14 Williams % (Auto) 6.8 % (0.0-7.3) 12/09/18 04:14 Eos % (Auto) 0.5 % (0.0-4.3) 12/09/18 04:14 Baso % (Auto) 1.2 % (0.0-1.8) 12/09/18 04:14 Lymph # 1.3 K/mm3 (1.2-5.4) 12/09/18 04:14 Williams # 0.4 K/mm3 (0.0-0.8) 12/09/18 04:14 Eos # 0.0 K/mm3 (0.0-0.4) 12/09/18 04:14 Baso # 0.1 K/mm3 (0.0-0.1) 12/09/18 04:14 Seg Neutrophils % 68.8 % (40.0-70.0) 12/09/18 04:14 Seg Neutrophils # 4.0 K/mm3 (1.8-7.7) 12/09/18 04:14 PT 15.3 Sec. (12.2-14.9) H 12/08/18 23:27 INR 1.14 (0.87-1.13) H 12/08/18 23:27 APTT 34.1 Sec. (24.2-36.6) 12/08/18 23:27 Sodium 138 mmol/L (137-145) 12/11/18 04:56 Potassium 4.4 mmol/L (3.6-5.0) 12/11/18 04:56 Chloride 104.3 mmol/L (98-107) 12/11/18 04:56 Carbon Dioxide 20 mmol/L (22-30) L 12/11/18 04:56 Anion Gap 18 mmol/L 12/11/18 04:56 BUN 27 mg/dL (9-20) H 12/11/18 04:56 Creatinine 1.4 mg/dL (0.8-1.5) 12/11/18 04:56 Estimated GFR 58 ml/min 12/11/18 04:56 BUN/Creatinine Ratio 19 % 12/11/18 04:56 Glucose 106 mg/dL (75-100) H 12/11/18 04:56 Calcium 8.4 mg/dL (8.4-10.2) 12/11/18 04:56 Magnesium 1.70 mg/dL (1.7-2.3) 12/08/18 23:27 Total Creatine Kinase 58 units/L (55-170) 12/09/18 08:27 CK-MB (CK-2) 1.6 ng/mL (0.0-4.0) 12/09/18 08:27 CK-MB (CK-2) Rel Index 2.7 (0-4) 12/09/18 08:27 Troponin T 0.044 ng/mL (0.00-0.029) H 12/09/18 08:27 Triglycerides 139 mg/dL (2-149) 12/08/18 23:27 Cholesterol 207 mg/dL (50-199) H 12/08/18 23:27 LDL Cholesterol Direct 144 mg/dL (50-130) H 12/08/18 23:27 HDL Cholesterol 46 mg/dL (40-59) 12/08/18 23:27 Cholesterol/HDL Ratio 4.50 % 12/08/18 23:27 TSH 4.060 mlU/mL (0.270-4.200) 12/09/18 10:37 Free T4 1.13 ng/dL (0.76-1.46) 12/09/18 10:37 Blood Type O POSITIVE 12/08/18 23:25 Antibody Screen Negative 12/08/18 23:25 Active Medications - Current Medications Current Medications: Generic Name Dose Route Start Last Admin Trade Name Freq PRN Reason Stop Dose Admin Acetaminophen 650 mg 12/09/18 01:38 12/12/18 05:28 Tylenol PO 650 mg Q4H PRN Administration Pain MILD(1-3)/Fever >100.5/LUCIO Digoxin 0.125 mg 12/10/18 17:00 12/11/18 19:05 Lanoxin PO 0.125 mg DAILY@1700 KORY Administration Diltiazem HCl 30 mg 12/09/18 18:00 12/12/18 05:06 Cardizem PO 30 mg Q6HR KORY Administration Haloperidol Lactate 5 mg 12/09/18 11:27 12/12/18 00:19 Haldol IV 5 mg Q6H PRN Administration Agitation Sodium Chloride 1,000 mls @ 50 mls/hr 12/10/18 15:00 12/11/18 23:23 Nacl 0.9% 1000 Ml IV 50 mls/hr DIRECT KORY Administration Metoprolol Tartrate 5 mg 12/09/18 13:24 12/12/18 10:00 Lopressor IV 5 mg Q6H PRN Administration HR greater than 130 Ondansetron HCl 4 mg 12/09/18 01:38 Zofran IV Q8H PRN Nausea And Vomiting Pantoprazole Sodium 40 mg 12/12/18 10:00 12/12/18 10:01 Protonix PO 40 mg DAILY KORY Administration Sodium Chloride 10 ml 12/09/18 10:00 12/11/18 22:05 Sodium Chloride Flush Syringe 10 Ml IV 10 ml BID KORY Administration Sodium Chloride 10 ml 12/09/18 01:38 Sodium Chloride Flush Syringe 10 Ml IV PRN PRN LINE FLUSH
--- NOTE | 2018-12-12 12:44 | Progress Note ---
Assessment and Plan GI bleed EGD/colonoscopy: hiatal hernia, healing M-W tear x 2 GE junction w/o bleeding stigmata, gastritis, healing duodenal ulcer w/ mild deformity bulb, diverticulosis and internal hemorrhoids Atrial fibrillation, uncertain chronicity on diltiazem and digoxin for rate control Acute renal failure Hx of Prostate Ca Dementia Echocardiogram reports evidence of moderate TR with a normal left ventricular systolic function, EF 55%. Recommend: Continue rate controlling agents with digitalis and diltiazem for atrial fibrillation that persists. Patient is considered a poor candidate for oral anticoagulation due to advanced age, reported GI bleed and multiple lesions described on GI endoscopy. Stable cardiac pulido. Subjective Date of service: 12/12/18 Principal diagnosis: GI bleed Interval history: Patient has no complaints. He denies chest pain, shortness of breath and palpitations. Rate control is optimal. Objective Vital Signs Temp Pulse Resp BP Pulse Ox 12/12/18 12:00 97.7 F 12/12/18 10:00 132 H 135/85 12/12/18 08:00 97.9 F 12/12/18 05:06 131 H 143/82 12/12/18 05:00 18 100 12/12/18 04:00 98.4 F 12/12/18 01:14 152 H 132/83 12/12/18 01:00 22 100 12/12/18 00:00 98.2 F 12/11/18 23:23 147 H 130/70 12/11/18 22:00 105 H 12/11/18 21:00 14 100 12/11/18 20:00 97.5 F L 12/11/18 19:05 122 H 109/51 12/11/18 18:30 149 H 109/51 12/11/18 17:00 16 96 12/11/18 13:00 18 95 - Physical Examination General: No Apparent Distress HEENT: Positive: PERRL Neck: Positive: trachea midline Cardiac: Positive: irregularly irregular - Labs and Meds CBC 12/12/18 Range/Units 07:17 Hgb 11.0 L (11.8-15.2) gm/dl Hct 33.1 L D (35.5-45.6) %
--- NOTE | 2018-12-12 12:51 | Discharge Summary ---
Providers - Providers Date of Admission: 12/09/18 01:12 Date of discharge: 12/12/18 Attending physician: LORRAINE COLBERT 12/09/18 00:22 Consult to Physician [CONS] Routine Comment: To be done in the am Consulting Provider: ADENIKE JENNINGS Physician Instructions: Reason For Exam: GI bleed 12/09/18 01:38 Consult to Physician [CONS] Routine Comment: Consulting Provider: CONNOR LAWRENCE Physician Instructions: Reason For Exam: cc 12/09/18 01:40 Consult to Physician [CONS] Routine Comment: Consulting Provider: TATYANA FERNANDEZ Physician Instructions: Reason For Exam: afib Hospitalization Condition: Fair Hospital course: Patient is 88 yo male with a history of hypertension, dementia, prostate cancer was brought to the emergency room daughter because he had blood per rectum. In the emergency room he was found to be in Atrial fib with RVR. Patient was started on Cardizem drip and admitted to [facility]. He was evaluated by cardiology and GI Physician. on 12/10/18, he had EGD and colonoscopy done. EGD revealed hiatal hernia, healing ebonie aranda tear, gastritis and 8 mm duodenal ulcer bulb and healing ulcer w/ mild deformity bulb. Colonoscopy revealed diverticulosis throughout mainly sigmoid, internal hemorrhoids. Diverticular bleed. His Hgb remained stable so was sent home on 12/12/2018. He was never transfused blood. Total time spent on discharge, 34 mins Disposition: [id number] HOME [facility] - Discharge Diagnoses (1) Vasomotor nephropathy Status: Acute (2) Diverticular hemorrhage Status: Acute (3) Gastritis Status: Acute (4) Duodenal bulb ulcer Status: Acute (5) Ebonie-Aranda tear Status: Acute (6) Atrial fibrillation with RVR Status: Acute (7) GI bleed Status: Acute Core Measure Documentation - Palliative Care Palliative Care/ Comfort Measures: Not Applicable - Core Measures Any of the following diagnoses?: none Exam - Constitutional Vitals: Temp Pulse Resp BP Pulse Ox 97.7 F 132 H 18 135/85 100 12/12/18 12:00 12/12/18 10:00 12/12/18 05:00 12/12/18 10:00 12/12/18 05:00 Plan Activity: advance as tolerated Diet: other (GI soft diet) Additional Instructions: 1.Follow up with PCP or [facility] in 3-5 days. 2.follow up with Dr. Galloway, cardiology in 3-5 days. 3.Follow up with Dr. Brayan Jennings, GI in 1 week Follow up with: LADY JARVIS MD [Referring] - 3-5 Days Forms: Accompanied Note Prescriptions: dilTIAZem CD [Cardizem Cd] 120 mg PO DAILY #30 cap Digoxin [Lanoxin] 0.125 mg PO DAILY #30 tablet Pantoprazole [Protonix TAB] 40 mg PO DAILY #30 tablet
--- NOTE | 2018-12-12 16:06 | Gastroenterology Progress Note ---
Assessment and Plan GI; stable w/o signs bleeding overnight - diet as tolerated - will sign off, call if needed Subjective Date of service: 12/12/18 Principal diagnosis: GI bleed Interval history: - no further signs bleeding overnight Objective - Constitutional Vitals: Temp Pulse Resp BP Pulse Ox 97.7 F 122 H 18 135/85 100 12/12/18 12:00 12/12/18 10:00 12/12/18 12:00 12/12/18 10:00 12/12/18 12:00 General appearance: no acute distress - EENT Eyes: PERRL - Respiratory Respiratory: bilateral: CTA - Cardiovascular Rhythm: regular Heart Sounds: Present: S1 & S2 - Gastrointestinal General gastrointestinal: Present: soft, non-tender, non-distended - Labs CBC & Chem 7: 12/12/18 07:17 12/11/18 04:56 Labs: Laboratory Results - last 24 hr 12/12/18 07:17 Hgb 11.0 L Hct 33.1 L D
== END 2018-12-12 14:15 | disposition home health service (06) | DRG 377 ==
LOC: ED 22:45 → CC1 12-09 01:12 → IMCU 12-09 19:42
PROVIDERS: ADMIT Internal Medicine; ATTEND Internal Medicine
PROC: 0DJD8ZZ Inspection of Lower Intestinal Tract, Via Natural or Artificial Opening Endoscopic (ICD-10-PCS; principal; 2018-12-10)
PROC: 0DJ08ZZ Inspection of Upper Intestinal Tract, Via Natural or Artificial Opening Endoscopic (ICD-10-PCS; 2018-12-10)
DX: K57.31 Diverticulosis of large intestine without perforation or abscess with bleeding (principal); N17.0 Acute kidney failure with tubular necrosis; G93.40 Encephalopathy, unspecified; K22.6 Gastro-esophageal laceration-hemorrhage syndrome; I48.91 Unspecified atrial fibrillation; I10 Essential (primary) hypertension; K64.8 Other hemorrhoids; D17.79 Benign lipomatous neoplasm of other sites; K26.9 Duodenal ulcer, unspecified as acute or chronic, without hemorrhage or perforation; K44.9 Diaphragmatic hernia without obstruction or gangrene; F03.90 Unspecified dementia, unspecified severity, without behavioral disturbance, psychotic disturbance, mood disturbance, and anxiety; Z82.49 Family history of ischemic heart disease and other diseases of the circulatory system; Z90.79 Acquired absence of other genital organ(s); Z85.46 Personal history of malignant neoplasm of prostate
CPT/HCPCS: 36415; 70450; 71045; 74018; 80048; 80061; 82550; 82553; 83735; 84439; 84443; 84484; 85014; 85018; 85025; 85027; 85610; 85730; 86850; 86900; 86901; 93005; 93010; 93306; G0378; C9113; J1160; J1630; J2704; J7030; J7040